=== PATIENT | female | born 1950 | race African-American/Black ===

== ENCOUNTER 2018-04-25 17:28 | Emergency (ER) | payer OTHER ==
--- NOTE | 2018-04-25 17:35 | PDOC ---
Rapid Medical Evaluation Chief Complaint: Chest Pain Time Seen by Provider: 04/25/18 17:30 Medical Evaluation: Allergies Allergy/AdvReac Type Severity Reaction Status Date / Time metronidazole [From Flagyl] Allergy Itching Verified 04/25/18 17:30 Metronidazole HCl Allergy Itching Verified 04/25/18 17:30 [From Flagyl] propoxyphene napsylate Allergy Itching Verified 04/25/18 17:30 [From Darvocet-N 100] 04/25/18 17:31 I have performed a brief in-person evaluation of this patient. The patient presents with a chief complaint of: chest pain x 1 hour, intermittant , some stomach upset - no URI symptoms Pertinent physical exam findings: pale/ rubbing chest , I have ordered the following: EKG The patient will proceed to the ED for further evaluation 04/25/18 17:33 Discharge Disposition - Diagnosis Chest pain - Referrals Referrals: Melo Pinon MD [Primary Care Provider] - - Patient Instructions - Post Discharge Activity
[2018-04-25 17:42] VITALS: BMI 38.2
[2018-04-25] MEDS ORDERED: MAG HYDROX/AL HYDROX/SIMETH 30 ML UNIT-DOSE CUP PO ONE (18:23)
[2018-04-25] MEDS ORDERED: ASPIRIN 81 MG CHEWABLE TABLETS ONE (18:26)
[2018-04-25] MEDS ORDERED: MAG HYDROX/AL HYDROX/SIMETH 30 ML UNIT-DOSE CUP ONE (18:26)
[2018-04-25] MEDS ORDERED: ASPIRIN 81 MG CHEWABLE TABLETS PO SCH (18:30)
--- NOTE | 2018-04-25 18:36 | PDOC ---
History of Present Illness - General Chief Complaint: Chest Pain Stated Complaint: CHEST PAIN Time Seen by Provider: 04/25/18 17:30 - History of Present Illness Initial Comments: 04/25/18 18:24 67F w/ pmhx of migraine, hyperaldosteronism, migraine who presents with new onset substernal chest pressure that started an hour prior to coming to the ED. She states her symptoms started while she was getting onto an elevator at her doctor's office. She cannot distinguish if this pain is exertional or not. Chest pressure does not radiate. She denies taking anything at home. Over the weekend, pt admits to decreased PO intake due to acid reflux symptoms. She admits to chronic headaches, but denies dizziness, f/c, n/v, abd pain, urinary/ bowel symptoms. Of note, she was unable to proceed with getting an endoscopy done this year due to family issues. Additionally, stopped taking Victoza last week due to problems with insurance coverage. PCP: Dr. 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 Denies recent travel Past History - Past Medical History Allergies/Adverse Reactions: Allergies Allergy/AdvReac Type Severity Reaction Status Date / Time metronidazole [From Flagyl] Allergy Itching Verified 04/25/18 17:30 Metronidazole HCl Allergy Itching Verified 04/25/18 17:30 [From Flagyl] propoxyphene napsylate Allergy Itching Verified 04/25/18 17:30 [From Darvocet-N 100] Home Medications: Ambulatory Orders Citalopram Hydrobromide [Celexa -] 40 mg PO DAILY 01/07/12 Gabapentin [Neurontin] 300 mg PO TID 01/07/12 Spironolactone [Aldactone -] 50 mg PO TID 01/07/12 Zolpidem Tartrate [Ambien] 10 mg PO HS 01/07/12 Aspirin [ASA -] 325 mg PO DAILY@0800 #28 tablet 10/29/13 Albuterol Sulfate Inhaler - [Ventolin HFA Inhaler -] 1 - 2 inh PO QID #1 inhaler 01/21/15 Diltiazem Cd [Cardizem Cd -] 180 mg PO DAILY 01/21/15 Bupropion HCl [Wellbutrin Xl] 300 mg PO DAILY 04/30/16 Liraglutide [Victoza -] 1.6 mg SQ HS 04/30/16 Ranitidine [Zantac -] 150 mg PO DAILY 04/30/16 Omeprazole 20 mg PO DAILY #21 capsule. 04/25/18 Asthma: Yes Cardiac Disorders: Yes (tachycardia) COPD: No Diabetes: Yes HTN: Yes Hypercholesterolemia: Yes Psychiatric Problems: Yes (DEPRSSION, ANXIETY) - Surgical History Cholecystectomy: Yes Orthopedic Surgery: Yes (foot sx) - Immunization History Immunization Up to Date: Yes - Suicide/Smoking/Psychosocial Hx Smoking Status: Yes Smoking History: Unknown if ever smoked Have you smoked in the past 12 months: No Number of Cigarettes Smoked Daily: 0 If you are a former smoker, when did you quit?: 2000 Hx Alcohol Use: No Drug/Substance Use Hx: No Substance Use Type: None, Alcohol Hx Substance Use Treatment: No Review of Systems - Review of Systems Constitutional: No: Chills, Fever, Weakness HEENTM: No: Recent change in vision Respiratory: No: Cough, Orthopnea, Shortness of Breath, SOB with Exertion, SOB at Rest Cardiac (ROS): Yes: See HPI ABD/GI: Yes: Poor Appetite. No: Constipated, Diarrhea, Nausea, Vomiting Neurological: Yes: Headache *Physical Exam - Vital Signs Last Vital Signs Temp Pulse Resp BP Pulse Ox 75 18 128/86 100 04/25/18 18:15 04/25/18 18:15 04/25/18 18:15 04/25/18 18:15 - Physical Exam General Appearance: Yes: Appropriately Dressed HEENT: positive: EOMI, Normal Voice Neck: positive: Supple Respiratory/Chest: positive: Chest Tender, Lungs Clear, Normal Breath Sounds Cardiovascular: positive: Regular Rhythm, Regular Rate, S1, S2 Vascular Pulses: Dorsalis-Pedis (R): 2+, Doralis-Pedis (L): 2+ Gastrointestinal/Abdominal: positive: Normal Bowel Sounds, Soft 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 -DDx includes GERD, esophageal spasm, r/o ACS -Will get CBC/CMP, cardiac profile, Mag, EKG, CXR, tele -Aspirin and Maalox given -Will continue to monitor for symptoms 04/25/18 19:29 -CBC/CMP wnl; trop <0.02 -EKG showed NSR, no ST-T changes -CXR showed no acute lung disease 04/25/18 21:16 Pt's chest pain is positional, reproducible upon palpation. Unlikely cardiac, will give meds for pain. -will repeat trops -will give Toradol 30 mg IV and re-evaluate. 04/25/18 23:08 -Repeat trops neg. Pt has symptomatic improvement after given Toradol. Advised pt to follow up with PCP and cardio within 1 week. Prescribed Omeprazole 20 mg QD and recommended patient to avoid certain foods such as: caffeine, chocolate, wine, citrus fruits, and to avoid food consumption 4 hours prior to sleeping at night. DC to home. *DC/Admit/Observation/Transfer Diagnosis at time of Disposition: Chest pain Qualifiers: Chest pain type: other chest pain Qualified Code(s): R07.89 - Other chest pain Acid reflux Qualifiers: Esophagitis presence: without esophagitis Qualified Code(s): K21.9 - Gastro- esophageal reflux disease without esophagitis - Discharge Dispostion Disposition: HOME Condition at time of disposition: Improved Decision to Admit order: No - Prescriptions Prescriptions: Omeprazole 20 mg PO DAILY #21 capsule.dr - Referrals Referrals: Melo Pinon MD [Primary Care Provider] - - Patient Instructions Additional Instructions: You were seen in the ED for complaints of chest pain. In the ED, lab work was done that showed normal cardiac enzymes. An EKG was done that was also normal. You were given medications and found to have symptoms of acid reflux. There is no need for hospitalization at this time. You are being discharged home. Please follow up with your primary care physician, Dr. Pinon within 1 week. 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 You are being prescribed the following medications: Omeprazole 20 mg by mouth once a day. Please take this medication as directed. If you experience worsening chest pain, shortness of breath, persistent nausea/ vomiting, abdominal pain, or fever/chills, please proceed to your nearest emergency room immediately. - Post Discharge Activity
[2018-04-25 18:46] LABS: BASO % 0.9 % (0-2.0); EOS % 2.2 % (0-4.5); HEMATOCRIT 42.1 % (32.4-45.2); HEMOGLOBIN 14.6 GM/dL (10.7-15.3); LYMPH % 42.1 % (8-40); MCH 31.7 pg (25.7-33.7); MCHC 34.7 g/dl (32.0-36.0); MEAN CELL VOLUME 91.4 fl (80-96); MEAN PLT VOLUME 7.8 fl (7.5-11.1); MONO % 8.7 % (3.8-10.2); NEUT % 46.1 % (42.8-82.8); PLATELET COUNT 266 K/MM3 (134-434); RBC 4.61 M/mm3 (3.60-5.2); RDW 14.1 % (11.6-15.6); WHITE BLOOD COUNT 7.7 K/mm3 (4.0-10.0)
[2018-04-25 19:15] LABS: ALBUMIN 3.8 g/dl (3.4-5.0); ALK PHOS 111 U/L (45-117); ANION GAP 7 MMOL/L (8-16); BILIRUBIN,TOTAL 0.3 mg/dL (0.2-1); BLOOD UREA NITROGEN 18 mg/dL (7-18); CALCIUM 8.7 mg/dL (8.5-10.1); CHLORIDE 105 mmol/L (98-107); CO2 30 mmol/L (21-32); CREATININE 1.2 mg/dL (0.55-1.3); GLUCOSE,RANDOM 79 mg/dL (74-106); MAGNESIUM 2.3 mg/dL (1.8-2.4); POTASSIUM 4.4 mmol/L (3.5-5.1); SGOT/AST 12 U/L (15-37); SGPT/ALT 20 U/L (13-61); SODIUM 142 mmol/L (136-145); TOT PROT 7.3 g/dl (6.4-8.2)
[2018-04-25] MEDS ORDERED: KETOROLAC TROMETHAMINE 30 MG/1 ML VIAL IM ONE (21:15)
[2018-04-25] MEDS ORDERED: KETOROLAC TROMETHAMINE 30 MG/1 ML VIAL IVPUSH ONE (21:17)
--- NOTE | 2018-04-25 21:18 | PDOC ---
Attending Attestation - HPI HPI: 04/25/18 21:33 The patient is a 67 year old female, with a significant past medical history of hyperaldosteronism and migraines, who presents to the emergency department with , sudden onset chest pain. She describes her chest pain as substernal and pressure-like. She denies recent fevers, chills, headache or dizziness. She denies recent nausea, vomit, diarrhea or constipation. She denies recent dysuria, frequency, urgency or hematuria. She denies recent chest pain or shortness of breath. Past surgical history: cholecystectomy, hysterectomy, foot surgery Primary Care Physician: Dr. Pinon - Physicial Exam PE: 04/25/18 21:40 +GENERAL: Obese. Well-appearing, well-nourished. No apparent distress. HEENT: Normocephalic, atraumatic. PERRL, EOM intact. +CHEST: Reproducible midsternal chest tenderness. CARDIOVASCULAR: Normal S1, S2. Regular rate and rhythm. PULMONARY: Clear to auscultation bilaterally. +ABDOMEN: Protuberant. Soft, non-distended, non-tender. EXTREMITIES: Normal ROM in all four extremities. No gross deformities. SKIN: Warm, dry. No rash NEUROLOGICAL: No focal neurological deficits. <Dee Pollard - Last Filed: 04/25/18 21:40> - Resident Resident Name: Marycruz Soria - ED Attending Attestation I have performed the following: I have examined & evaluated the patient, The case was reviewed & discussed with the resident, I agree w/resident's findings & plan, Exceptions are as noted - HPI HPI: 04/25/18 21:16 67-year-old female dev substernal chest pain about an hour prior to arrival. - Medical Decision Making 04/25/18 23:08 Patient's chest pain was sternal and very positional. It worsens with movement. EKG did not show any signs of ischemia. She had 2 negative troponins. Chest x-ray showed normal cardiac silhouette, no effusions seen, normal mediastinum. Labs reviewed. Patient's pain greatlyimproved w pain meds pt states she had prior stress test this year that was unremarkable IMP atypical chest pain 'plan follow up with her machine loader <Payton Snow - Last Filed: 04/25/18 23:10> Attestations - Attestations 04/25/18 21:33 Documentation prepared by Dee Pollard, acting as medical records clerk for Payton Snow MD. <Dee Pollard - Last Filed: 04/25/18 21:40>
[2018-04-25] MEDS ORDERED: KETOROLAC TROMETHAMINE 30 MG/1 ML VIAL ONE (22:08)
[2018-04-25 23:46] VITALS: BP 124/78; PULSE 72
--- NOTE | 2018-04-26 12:09 | EKG ---
Test Reason : Blood Pressure : / mmHG Vent. Rate : 071 BPM Atrial Rate : 071 BPM P-R Int : 192 ms QRS Dur : 092 ms QT Int : 418 ms P-R-T Axes : 052 -30 025 degrees QTc Int : 454 ms NORMAL SINUS RHYTHM POSSIBLE LEFT ATRIAL ENLARGEMENT LEFT AXIS DEVIATION ABNORMAL ECG Confirmed by MD NITIN, PETRA ([id number]) on 04/26/2018 12:08:53 PM Referred By: Confirmed By:PETRA TAVERAS MD
== END 2018-04-25 23:45 | disposition home or self-care (01) ==
LOC: JER 17:28
PROC: 3E0333Z Introduction of Anti-inflammatory into Peripheral Vein, Percutaneous Approach (ICD-10-PCS; principal; 2018-04-25)
DX: R07.89 Other chest pain (principal); K21.9 Gastro-esophageal reflux disease without esophagitis; E26.9 Hyperaldosteronism, unspecified; G43.909 Migraine, unspecified, not intractable, without status migrainosus
CPT/HCPCS: 36415; 71045-TC-FY; 80053; 82550; 82553; 83735; 84484; 85025; 93005; 93010; 99285-25

== ENCOUNTER 2019-05-05 22:57 | Emergency (ER) | payer BC, OTHER ==
[2019-05-05 23:03] VITALS: BP 110/67; PULSE 55; TEMP 97.7; BMI 38.2
--- NOTE | 2019-05-05 23:10 | PDOC ---
History of Present Illness - General Chief Complaint: Redness To Affected Area Stated Complaint: ALLERGIC REACTION Time Seen by Provider: 05/05/19 23:10 - History of Present Illness Initial Comments: 05/05/19 23:10 67 year old female, with a significant past medical history of hyperaldosteronism and migraines Past History - Past Medical History Allergies/Adverse Reactions: Allergies Allergy/AdvReac Type Severity Reaction Status Date / Time metronidazole [From Flagyl] Allergy Itching Verified 05/05/19 23:03 Metronidazole HCl Allergy Itching Verified 05/05/19 23:03 [From Flagyl] propoxyphene napsylate Allergy Itching Verified 05/05/19 23:03 [From Darvocet-N 100] Home Medications: Ambulatory Orders Citalopram Hydrobromide [Celexa -] 40 mg PO DAILY 01/07/12 Gabapentin [Neurontin] 300 mg PO TID 01/07/12 Spironolactone [Aldactone -] 50 mg PO TID 01/07/12 Zolpidem Tartrate [Ambien] 10 mg PO HS 01/07/12 Aspirin [ASA -] 325 mg PO DAILY@0800 #28 tablet 10/29/13 Albuterol Sulfate Inhaler - [Ventolin HFA Inhaler -] 1 - 2 inh PO QID #1 inhaler 01/21/15 Diltiazem Cd [Cardizem Cd -] 180 mg PO DAILY 01/21/15 Bupropion HCl [Wellbutrin Xl] 300 mg PO DAILY 04/30/16 Liraglutide [Victoza -] 1.6 mg SQ HS 04/30/16 Ranitidine [Zantac -] 150 mg PO DAILY 04/30/16 Omeprazole 20 mg PO DAILY #21 capsule. 04/25/18 Sulfamethoxazole/Trimethoprim [Bactrim Ds -] 1 tab PO BID #14 tablet 05/05/19 Asthma: Yes Cardiac Disorders: Yes (tachycardia) COPD: No Diabetes: Yes HTN: Yes Hypercholesterolemia: Yes Psychiatric Problems: Yes (DEPRSSION, ANXIETY) - Surgical History Cholecystectomy: Yes Orthopedic Surgery: Yes (foot sx) - Immunization History Immunization Up to Date: Yes - Psycho Social/Smoking Cessation Hx Smoking Status: Yes Smoking History: Never smoked Have you smoked in the past 12 months: No Number of Cigarettes Smoked Daily: 0 If you are a former smoker, when did you quit?: 2000 Hx Alcohol Use: No Drug/Substance Use Hx: No Substance Use Type: None, Alcohol Hx Substance Use Treatment: No *Physical Exam - Vital Signs Last Vital Signs Temp Pulse Resp BP Pulse Ox 97.7 F 55 L 18 110/67 99 05/05/19 23:00 05/05/19 23:00 05/05/19 23:00 05/05/19 23:00 05/05/19 23:00 Discharge - Discharge Information Problems reviewed: Yes Clinical Impression/Diagnosis: Cellulitis Condition: Stable Disposition: HOME - Admission No - Additional Discharge Information Prescriptions: Sulfamethoxazole/Trimethoprim [Bactrim Ds -] 1 tab PO BID #14 tablet - Follow up/Referral - Patient Discharge Instructions Additional Instructions: You were seen in the ER for complaints of arm redness and itching You were given antibiotics and were prescribed a course of of antibiotics that should be taken as advised. You have your rash outlined and should return to the ED if your rash moves beyond those boundaries. Return to the ED if you experience worsening rash, fever, numbness or tingling or any other concerning symptoms. - Post Discharge Activity
[2019-05-05] MEDS ORDERED: diphenhydrAMINE HCL 25 MG CAPSULE (FP) PO ONE ×2 (23:11→23:23)
[2019-05-05] MEDS ORDERED: SULFAMETHOXAZOLE/TRIMETHOPRIM 800MG/160MG D.S. TABLET PO ONE (23:47)
[2019-05-05] MEDS ORDERED: SULFAMETHOXAZOLE/TRIMETHOPRIM 800MG/160MG D.S. TABLET ONE (23:50)
== END 2019-05-05 23:57 | disposition home or self-care (01) ==
LOC: JER 22:57
DX: L03.113 Cellulitis of right upper limb (principal); S50.361A Insect bite (nonvenomous) of right elbow, initial encounter; W57.XXXA Bitten or stung by nonvenomous insect and other nonvenomous arthropods, initial encounter; Y93.89 Activity, other specified; Y92.89 Other specified places as the place of occurrence of the external cause; Y99.8 Other external cause status; I10 Essential (primary) hypertension; E11.9 Type 2 diabetes mellitus without complications; Z79.4 Long term (current) use of insulin; E78.00 Pure hypercholesterolemia, unspecified; F32.9 Major depressive disorder, single episode, unspecified; F41.9 Anxiety disorder, unspecified; E26.89 Other hyperaldosteronism; Z90.49 Acquired absence of other specified parts of digestive tract
CPT/HCPCS: 99282-25

== ENCOUNTER 2022-04-14 08:26 | Emergency (ER) | payer OTHER ==
[2022-04-14 08:40] VITALS: BP 128/86; PULSE 85; RESP 20; TEMP 98.4; BMI 35.6
[2022-04-14] MEDS ORDERED: ALBUTEROL SO4 2.5/IPRATROPIUM 0.5 INH SOL 3 ML VIAL.NEB. NEB ONE ×3 (09:15→10:34)
[2022-04-14] MEDS ORDERED: ACETAMINOPHEN 500 MG TABLET (FP) PO ONE (09:15)
[2022-04-14] MEDS ORDERED: ACETAMINOPHEN 325 MG TABLET (FP) ONE (09:17)
[2022-04-14] MEDS: ALBUTEROL SO4 2.5/IPRATROPIUM 0.5 INH SOL 3 ML VIAL.NEB. NEB SCH (10:50)
== END 2022-04-14 12:00 | disposition home or self-care (01) ==
LOC: JER 08:26
PROC: 3E0F7GC Introduction of Other Therapeutic Substance into Respiratory Tract, Via Natural or Artificial Opening (ICD-10-PCS; principal; 2022-04-14)
DX: J45.901 Unspecified asthma with (acute) exacerbation (principal); B34.9 Viral infection, unspecified
CPT/HCPCS: 0241U-QW; 71046-TC-FY; 99284-25

== ENCOUNTER 2023-02-10 04:35 | Day surgery (SDC) | payer OTHER ==
[2023-02-08 15:59] VITALS: BMI 37.0
[2023-02-10] MEDS ORDERED: LIDOCAINE HCL 1%, 10 MG/ML (20ML VIAL) ONE (13:08)
[2023-02-10] MEDS ORDERED: DEXAMETHASONE SOD PHOSPHATE 4 MG/1 ML VIAL ONE ×2 (13:08→13:28)
[2023-02-10] MEDS ORDERED: BUPIVACAINE HCL/PF 0.5% (5MG/ML) 10 ML VIAL ONE (13:08)
[2023-02-10] MEDS ORDERED: MIDAZOLAM HCL 2 MG/2 ML SINGLE DOSE VIAL ONE ×2 (13:26→13:53)
[2023-02-10] MEDS ORDERED: PROPOFOL 80 ML ONE (13:26)
[2023-02-10] MEDS ORDERED: ONDANSETRON 4 MG/2 ML VIAL ONE (13:28)
[2023-02-10] MEDS ORDERED: ceFAZolin SODIUM 1 GM VIAL ONE (13:29)
[2023-02-10] MEDS ORDERED: SODIUM CHLORIDE 0.9% P/F 10 ML VIAL IJ ONE (13:30)
[2023-02-10] MEDS ORDERED: ACETAMINOPHEN INJECTION 100 ML IVPB ONE (13:36)
[2023-02-10] MEDS ORDERED: ONDANSETRON 4 MG/2 ML VIAL IVPUSH PRN (13:50)
[2023-02-10] MEDS ORDERED: oxyCODONE HCL 5 MG TABLET PO PRN (13:50)
[2023-02-10] MEDS ORDERED: PROMETHAZINE HCL 25 MG/1 ML VIAL IVPB PRN (13:50)
[2023-02-10] MEDS ORDERED: LACTATED RINGERS SOLUTION 1,000 ML IV SCH (14:00)
[2023-02-10] MEDS ORDERED: ceFAZolin SODIUM 1 GM VIAL IVPB ONE (14:10)
[2023-02-10] MEDS ORDERED: LIDOCAINE HCL 1%, 10 MG/ML (20ML VIAL) NR ONE (14:13)
[2023-02-10] MEDS ORDERED: BUPIVACAINE HCL/PF 0.5% (5 MG/ML) 30 ML VIAL IJ ONE (14:13)
[2023-02-10 18:23] VITALS: RESP 18
[2023-02-10] MEDS ORDERED: oxyCODONE HCL 5 MG TABLET ONE (18:49)
[2023-02-10 19:00] VITALS: BP 118/64; PULSE 58; TEMP 97.3
== END 2023-02-10 20:15 | disposition home or self-care (01) ==
LOC: JASU-SURG 04:35
PROVIDERS: ATTEND Podiatrist Foot & Ankle Surgery
PROC: 0SNN0ZZ Release Left Metatarsal-Phalangeal Joint, Open Approach (ICD-10-PCS; 2023-02-10)
PROC: 0QP104Z Removal of Internal Fixation Device from Sacrum, Open Approach (ICD-10-PCS; 2023-02-10)
PROC: 0SRQ0JZ Replacement of Left Toe Phalangeal Joint with Synthetic Substitute, Open Approach (ICD-10-PCS; principal; 2023-02-10 14:00)
DX: M20.42 Other hammer toe(s) (acquired), left foot (principal); M77.42 Metatarsalgia, left foot; M79.672 Pain in left foot; M24.575 Contracture, left foot
CPT/HCPCS: 76000-TC-FY; 88300-TC; 88305-TC; 88311-TC; 94760

== ENCOUNTER 2023-02-11 08:18 | Emergency (ER) | payer OTHER ==
[2023-02-11 08:57] VITALS: BP 109/61; PULSE 71; RESP 18; TEMP 98.6; BMI 37.5
== END 2023-02-11 10:13 | disposition home or self-care (01) ==
LOC: JER 08:18
DX: Z48.01 Encounter for change or removal of surgical wound dressing (principal); G89.18 Other acute postprocedural pain
CPT/HCPCS: 99283-25